=== PATIENT | female | born 1970 | race Caucasian/White ===

== ENCOUNTER 2025-04-04 14:17 | Emergency (ER) | payer BC, OTHER ==
[~2025-04-04] VITALS: Ht 170.2 cm; Wt 71.7 kg
[2025-04-04] MEDS ORDERED: TDAP DIPH,PERTUSS,TET VAC/PF 0.5 ML DISP.SYRIN IM ONE (14:59)
[2025-04-04] MEDS: TDAP DIPH,PERTUSS,TET VAC/PF 0.5 ML DISP.SYRIN IM ONE (15:22)
[2025-04-04 15:24] VITALS: BP 123/71; TEMP 98.5; O2SAT 99
== END 2025-04-04 15:29 | disposition home or self-care (01) ==
LOC: ER 14:17
DX: S61.011A Laceration without foreign body of right thumb without damage to nail, initial encounter (principal); E03.9 Hypothyroidism, unspecified; W26.8XXA Contact with other sharp object(s), not elsewhere classified, initial encounter; Y93.89 Activity, other specified; Y92.89 Other specified places as the place of occurrence of the external cause; Y99.8 Other external cause status
CPT/HCPCS: 90715; A4606; A4663

== ENCOUNTER 2025-08-29 23:13 | Emergency (ER) | payer BC ==
[~2025-08-29] VITALS: Ht 170.2 cm; Wt 72.6 kg
[2025-08-29 23:30] VITALS: BP 123/91; O2SAT 97
== END 2025-08-30 03:10 | disposition left against medical advice (07) ==
LOC: ER 23:36
DX: J02.9 Acute pharyngitis, unspecified (principal); Z53.21 Procedure and treatment not carried out due to patient leaving prior to being seen by health care provider
CPT/HCPCS: A4606; A4663